=== PATIENT | female | born 1975 | race Caucasian/White ===

== ENCOUNTER 2018-05-15 15:24 | Emergency (ER) | payer OTHER ==
[~2018-05-15] VITALS: Ht 165.1 cm; Wt 80.0 kg
[2018-05-15] MEDS ORDERED: CLONAZEPAM2 MG PO (15:57)
[2018-05-15] MEDS ORDERED: LOSARTAN POT25 MG PO (15:58)
[2018-05-15] MEDS ORDERED: LEXAPRO10 MG PO (15:58)
[2018-05-15] MEDS ORDERED: NAPROXEN375 MG PO (16:00)
[2018-05-15] MEDS ORDERED: ACCOLATE10 MG PO (16:00)
[2018-05-15] MEDS ORDERED: FISH OIL1000 MG PO (16:01)
[2018-05-15] MEDS ORDERED: B COMPLE2 PO (16:02)
[2018-05-15 16:29] LABS: HEMATOCRIT 36.4 % (37.0-47.0); HEMOGLOBIN 12.3 g/dl (12.0-16.0); IMMATURE GRANULOCYTES 0.1 % (0.0-5.0); MEAN CELL VOLUME 94.3 fL CALC (80.0-100.0); MEAN CORPUSCULAR HGB 31.9 pG CALC (26.0-32.0); MEAN CORPUSCULAR HGB CONC 33.8 g/L CALC (32.0-36.0); NEUT# 4.03 thou/uL (2.00-7.15); RED BLOOD COUNT 3.86 mill/uL (4.20-5.60); RED CELL DISTRI WIDTH 12.7 % (11.5-15.5)
[2018-05-15 17:58] LABS: ALBUMIN 4.3 g/dL (3.2-5.0); ALKALINE PHOSPHATASE 88 u/l (38-126); ANION GAP 15 (6-22 (CALC)); BILIRUBIN, TOTAL 0.6 mg/dL (0.0-1.4); BUN 14 mg/dL (7-17); BUN/CREATININE RATIO 19 (12-20 (CALC)); CARBON DIOXIDE 27 mmol/l (22-30); CHLORIDE 103 mmol/l (95-108); CREATININE 0.7 mg/dL (0.5-1.0); GFR > 60 ML/MIN (>=60 (CALC)); GFR FOR AFR.AMER. > 60 ML/MIN (>=60 (CALC)); LIPASE 153 u/l (23-300); POTASSIUM 3.9 mmol/l (3.5-5.1); SGOT/AST 65 u/l (14-36); SODIUM 141 mmol/l (137-146); TOTAL PROTEIN 7.3 g/dL (6.3-8.2)
[2018-05-15] MEDS ORDERED: PROTONIX40 M2 PO (18:48)
[2018-05-15 18:54] VITALS: BP 147/68
== END 2018-05-15 19:05 | disposition home or self-care (01) | DRG 392 ==
LOC: ED 15:24
PROVIDERS: Emergency Medicine
DX: R10.10 Upper abdominal pain, unspecified (principal)